=== PATIENT | male | born 1945 | race Caucasian/White ===

== ENCOUNTER 2022-05-01 07:12 | Day surgery (SDC) | payer OTHER ==
[2022-04-29 12:29] VITALS: BP 178/83
[2022-04-29 12:35] LABS: BASOPHILS % (AUTO) 0.8 % (0.0-5.0); EOSINOPHILS % (AUTO) 0.4 % (0.0-8.0); HEMATOCRIT 41.5 % (42-54); MEAN CORPUSCULAR HEMOGLOBIN 28.8 pg (27.0-33.0); MEAN CORPUSCULAR VOLUME 87.4 fL (79-99); NEUTROPHILS % (AUTO) 66.5 % (40.0-77.0); PLATELET COUNT (AUTO) 266 K/uL (130-400); RED BLOOD CELL COUNT(AUTO) 4.75 MIL/uL (4.50-6.20); RED CELL DISTRIBUTION WIDTH 13.1 % (11.0-15.5); WHITE BLOOD COUNT (AUTO) 7.1 K/uL (4.8-10.8)
[2022-04-29 12:50] LABS: PROTHROMBIN TIME 10.9 SEC (9.6-11.6)
[2022-04-29 12:51] LABS: PARTIAL THROMBOPLASTIN TIME 28.2 SEC (26.3-35.5)
[2022-04-29 12:52] LABS: BILIRUBIN,DIRECT 0.2 mg/dL (0.0-0.3); CREATININE 1.1 mg/dL (0.5-1.5); POTASSIUM 4.1 mmol/L (3.5-5.1); TOTAL PROTEIN, SERUM 7.2 g/dL (6.0-8.3)
[~2022-05-01] VITALS: Ht 180.3 cm; Wt 58.1 kg
== END 2022-05-01 08:30 | disposition home or self-care (01) ==
LOC: DAH 07:12
PROVIDERS: ATTEND Otolaryngology Plastic Surgery within the Head & Neck
DX: C44.319 Basal cell carcinoma of skin of other parts of face (principal); Z20.822 Contact with and (suspected) exposure to COVID-19; I10 Essential (primary) hypertension; E78.5 Hyperlipidemia, unspecified; I45.10 Unspecified right bundle-branch block; Z53.8 Procedure and treatment not carried out for other reasons; Z79.01 Long term (current) use of anticoagulants
CPT/HCPCS: 93005; 87426; 80076; 80048; 85025; 85610; 85730; 36415; A6260